=== PATIENT | male | born 1935 | race Caucasian/White ===

== ENCOUNTER → 2024-01-10 | Outpatient (CLI) | payer BC ==
[~2024-01-10] VITALS: Ht 170.2 cm; Wt 68.7 kg
[~2024-01-10] MED LIST: 00186-0370-20 IH; ANDROGEL1% TOP; ASPIR-LOW81 MG PO; ASPIRIN E.C. 8181 MG PO; ATROVENT 2.5 M2.5 ML IH; BETIMOL 0.5% OPH5 ML OU; CALCIUM + D 5001 TAB PO; CALCIUM 600 PLU1 TAB PO; CALTRATE-600 W600 MG PO; CARDIZEM CD 18180 MG PO; CARDIZEM CD 30300 MG PO; CARDURA4 MG PO; CARTIA XT180 MG PO; CELEBREX 200MG200 MG PO; COMBIGAN 0.2%-0.5 ML OS; DIOVAN; FISH OIL 1000MG1 CAP PO; FISH OIL CONC1000 MG PO; FORTAMET1000 MG PO; GLUCOPHAGE1000 MG PO; HYGROTON 2525 MG/TAB PO; HYGROTON25 MG PO; HYLAND LEG CRAMP PO; IRON TABLETS325 MG PO; KLOR-CON 1010 MEQ; LANTUS100 U/ML; LANTUS100 U/ML SQ; LUMIGAN 2.5 ML2.5 M1 OP; LUMIGAN EYE GTTS OU; MIRAPEX 0.125MG PO; MYRBETR50MG PO; NOVOLOG 100U100 U/M1 SQ; PHARMASSURE ZIN50 MG PO; PROSCAR 5MG5 MG PO; PROTONIX 40MG T40 MG PO; REQUIP 1MG T1 MG/TAB PO; SEREVENT IH; SPIRIVA INH IH; TAZTIA180 PO; TIMOLOL 0.5% OP10 ML OU; TYLENOL 325MG325 MG PO; Triamcinolone 40 MG/ML 1 ML VIAL IJ SCH; VITAMIN E800 IU PO; VTAMINC250TA; ZINC SO4 PO; ZINC10 M1 PO; [UNRECOGNIZED DRUG - OTHER]; [UNRECOGNIZED DRUG - OTHER] SL
[2024-01-10 13:50] VITALS: BP 164/52; PULSE 70; TEMP 97.3
[2024-01-10 14:30] VITALS: BP 152/76; PULSE 80
== END ==
LOC: COL.RAD 13:20
DX: M54.50 Low back pain, unspecified (principal)
CPT/HCPCS: J0665; J3301